=== PATIENT | female | born 1970 | race African-American/Black ===

== ENCOUNTER 2020-01-11 10:57 | Outpatient (CLI) | payer MEDICAID ==
[~2020-01-11] VITALS: Ht 165.1 cm; Wt 88.9 kg
[2020-01-11 11:39] VITALS: BP 117/70
--- NOTE | 2020-01-11 14:30 | Consultation ---
DATE OF CONSULTATION: 01/11/2020 CONSULTING PHYSICIAN: Adama Chavarria MD. CHIEF COMPLAINT: Referral for screening colonoscopy. PAST MEDICAL HISTORY: Hyperparathyroidism and parathyroid nodules. PAST SURGICAL HISTORY: , thyroid surgery. MEDICATIONS: Please see medication reconciliation list. FAMILY HISTORY: Noncontributory. SOCIAL HISTORY: The patient drinks alcohol occasionally. She used to smoke, quit 15 years ago. Denies any IV drug abuse. ALLERGIES: To penicillin, opiates, . REVIEW OF SYSTEMS: Negative. PHYSICAL EXAMINATION: VITAL SIGNS: Temperature 97.6, blood pressure 117/70, pulse 58, respirations 20. HEENT: Normocephalic and atraumatic. Sclerae are anicteric. NECK: Supple. No evidence of obvious lymphadenopathy. CARDIOVASCULAR: Regular rate and rhythm. Plus S1-S2. LUNGS: Clear to auscultation bilaterally. ABDOMEN: Positive bowel sounds. Soft, nontender. No rebound. No guarding. No peritoneal sign. EXTREMITIES: No cyanosis, no clubbing, no edema. ASSESSMENT AND PLAN: This is a 49-year-old female for referral for screening colonoscopy. Risks and benefits of procedure was explained to her. The prep was explained. We are going to schedule when authorization is obtained. Adama Chavarria M.D. DR: PRASANNA JOB#: [id number] CC:
== END 2020-01-11 12:57 | disposition home or self-care (01) ==
LOC: PAN 10:57
DX: Z00.00 Encounter for general adult medical examination without abnormal findings (principal); Z87.891 Personal history of nicotine dependence; Z88.0 Allergy status to penicillin; Z88.8 Allergy status to other drugs, medicaments and biological substances
CPT/HCPCS: G0463